=== PATIENT | female | born 2000 | race Caucasian/White ===

== ENCOUNTER 2021-06-20 22:26 | Emergency (ER) | payer MEDICAID ==
[~2021-06-20] VITALS: Ht 160 cm; Wt 49.9 kg
[2021-06-20 22:48] VITALS: BP 108/81
--- NOTE | 2021-06-20 22:55 | NUR ---
PT CARRIED IN BY PARENTS FOR LOWER BACK PAIN THAT STARTED TODAY. 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 PT IS 10/10 PAIN AT THIS TIME. PT IS UNABLE TO SIT OR WALK RIGHT NOW. NO PMH
[2021-06-21] MEDS ORDERED: KETOROLAC 30 MG/ML VIAL IM ONE (00:20)
[2021-06-21] MEDS ORDERED: IBUP-2213 PO (00:24)
[2021-06-21] MEDS ORDERED: CYCL-711 PO (00:24)
[2021-06-21] MEDS ORDERED: HYDROcodone/APAP 5/325 MG 1 TAB TAB ONE (01:21)
[2021-06-21 02:22] VITALS: BP 108/81
--- NOTE | 2021-06-21 02:23 | NUR ---
Patient discharged with v/s stable. Written and verbal after care instructions given and explained. Patient verbalized understanding. Ambulatory with steady gait. All questions addressed prior to discharge. Advised to follow up with PMD.
== END 2021-06-21 02:22 | disposition home or self-care (01) ==
LOC: MED 22:26
DX: S39.012A Strain of muscle, fascia and tendon of lower back, initial encounter (principal); Z79.899 Other long term (current) drug therapy; X58.XXXA Exposure to other specified factors, initial encounter; Y93.89 Activity, other specified; Y92.89 Other specified places as the place of occurrence of the external cause; Y99.8 Other external cause status
CPT/HCPCS: 96372; 99283; J1885